=== PATIENT | female | born 1965 | race Caucasian/White ===

== ENCOUNTER 2018-09-05 21:26 | Emergency (ER) | payer SELFPAY ==
[~2018-09-05 21:26] MED LIST: ISOVUE-370 76%-LOCM 1 ML ONE
--- NOTE | 2018-09-05 22:13 | RAD ---
CHEST TWO VIEWS: HISTORY: Pneumonia. Cough. COMPARISON: None. FINDINGS: Normal cardiac silhouette. Pulmonary vessels and hilum are normal. Costophrenic angles are clear. No consolidation or mass. No pneumothorax or osseous abnormalities. IMPRESSION: No acute cardiopulmonary process. POS: [facility]
[2018-09-05 22:34] LABS: #Basophils 0.1 thou/uL (0.0-0.2); #Eosinphils 0.2 thou/uL (0.0-0.7); #Lymphocytes 2.9 thou/uL (1.20-3.40); #Monocytes 0.5 thou/uL (0.11-0.59); #Neutrophils 4.9 thou/uL (1.40-6.50); %Basophils 0.6 % (0.0-1.0); %Eosinophils 2.6 % (0.0-10.0); %Lymphocytes 33.6 % (21.0-51.0); %Monocytes 5.5 % (0.0-10.0); %Neutrophils 57.7 % (42.0-75.0); Hemoglobin 12.7 g/dL (12.0-16.0); Mean Corpuscular HGB CONC 33.8 g/dL (32.0-36.0); Mean Corpuscular Hemoglobin 29.4 pg (27.0-31.0); Mean Platelet Volume 7.7 fL (7.4-10.4); Platelet Count 231 thou/uL (130-400); RBC Distribution Width 11.5 % (11.5-14.5); Red Blood Cell (RBC) Count 4.32 mill/uL (4.20-5.40); White Blood Cell (WBC) Count 8.6 thou/uL (4.8-10.8)
[2018-09-05 22:53] LABS: ALT (SGPT) 14 U/L (8-55); AST (SGOT) 12 U/L (5-34); Albumin 3.8 g/dL (3.5-5.0); Alkaline Phosphatase 86 U/L (40-150); Anion Gap 13 mmol/L (10-20); BUN (Urea Nitrogen) 14 mg/dL (9.8-20.1); Bilirubin, Total 0.3 mg/dL (0.2-1.2); CKMB 1.5 ng/mL (0-6.6); Calc. Creatinine Clearance 0 mL/min (70-130); Calcium 8.9 mg/dL (7.8-10.44); Carbon Dioxide 27 mmol/L (22-29); Chloride 104 mmol/L (98-107); Estimated GFR-MDRD 77; Globulin 3.5 g/dL (2.4-3.5); Glucose 171 mg/dL (70-105); Potassium 3.7 mmol/L (3.5-5.1); Protein, Total 7.3 g/dL (6.0-8.3); Sodium 140 mmol/L (136-145); Troponin I Less than 0.010 ng/mL (< 0.028)
[2018-09-06] MEDS ORDERED: Benzonatate 100 MG CAP ONE ×2 (00:14→00:17)
--- NOTE | 2018-09-06 07:49 | CT ---
CT ANGIOGRAM OF THE CHEST: HISTORY: Cough and shortness of breath. COMPARISON: 10/12/2009. TECHNIQUE: CT angiogram of the chest is performed in the axial plane. Three-dimensional reformatted images are submitted for interpretation. FINDINGS: No mediastinal mass, lymphadenopathy, or hematoma. Heart size is within normal limits. No pericardi al effusion. The thoracic and upper abdominal aorta have a normal caliber. No periaortic fat strand ing. Visualized upper solid organs are unremarkable. Trachea and central bronchi are patent. Dependent atelectatic changes. No consolidation or mass. N o pleural effusion or pneumothorax. No lytic or blastic lesions in the osseous structures. Adequate contrast opacification of the pulmonary arterial system to the level of the segmental arteri es. No filling defects to suggest thromboembolism. IMPRESSION: No evidence of pulmonary artery embolism to the level of the segmental arteries. POS: [facility]
== END 2018-09-06 00:33 | disposition home or self-care (01) ==
LOC: ERS 21:26
DX: J40 Bronchitis, not specified as acute or chronic (principal); Z79.899 Other long term (current) drug therapy; Z79.82 Long term (current) use of aspirin
CPT/HCPCS: 71046; 71275; 80053; 82553; 83880; 84484; 85025; 93005

== ENCOUNTER 2019-03-04 13:56 | Observation (INO) | payer SELFPAY ==
[2019-03-04 14:38] LABS: #Basophils 0.1 thou/uL (0.0-0.2); #Eosinphils 0.1 thou/uL (0.0-0.7); #Lymphocytes 3.2 thou/uL (1.20-3.40); #Monocytes 0.6 thou/uL (0.11-0.59); #Neutrophils 5.6 thou/uL (1.40-6.50); %Basophils 0.9 % (0.0-1.0); %Eosinophils 0.7 % (0.0-10.0); %Monocytes 5.9 % (0.0-10.0); %Neutrophils 58.6 % (42.0-75.0); Hemoglobin 14.5 g/dL (12.0-16.0); Mean Corpuscular HGB CONC 34.2 g/dL (32.0-36.0); Mean Corpuscular Volume 87.6 fL (78.0-98.0); Mean Platelet Volume 7.7 fL (7.4-10.4); Platelet Count 210 thou/uL (130-400); RBC Distribution Width 12.1 % (11.5-14.5); Red Blood Cell (RBC) Count 4.85 mill/uL (4.20-5.40); White Blood Cell (WBC) Count 9.5 thou/uL (4.8-10.8)
[2019-03-04 14:43] LABS: INR-International Normal Ratio 0.9; PTT 24.2 SEC (22.9-36.1); Prothrombin Time 12.6 SEC (12.0-14.7)
--- NOTE | 2019-03-04 14:53 | RAD ---
CHEST ONE VIEW: HISTORY: Facial numbness. COMPARISON: 09/05/2018 FINDINGS: Heart size is within normal limits. Lungs are clear. No pneumonia, edema, pleural effusion, or othe r acute process. IMPRESSION: No acute intrathoracic disease. POS: OFF
[2019-03-04 15:00] LABS: ALT (SGPT) 17 U/L (8-55); AST (SGOT) 11 U/L (5-34); Albumin 4.2 g/dL (3.5-5.0); Alkaline Phosphatase 84 U/L (40-150); Anion Gap 14 mmol/L (10-20); BUN (Urea Nitrogen) 20 mg/dL (9.8-20.1); Bilirubin, Total 0.6 mg/dL (0.2-1.2); CK (CPK) 42 U/L (29-168); Calc. Creatinine Clearance 0 mL/min (70-130); Calcium 10.6 mg/dL (7.8-10.44); Carbon Dioxide 28 mmol/L (22-29); Chloride 101 mmol/L (98-107); Estimated GFR-MDRD 74; Globulin 3.1 g/dL (2.4-3.5); Glucose 165 mg/dL (70-105); Potassium 4.7 mmol/L (3.5-5.1); Protein, Total 7.3 g/dL (6.0-8.3); Sodium 138 mmol/L (136-145)
--- NOTE | 2019-03-04 15:44 | CT ---
CT HEAD WITHOUT IV CONTRAST COMPARISON: None HISTORY: Facial numbness and difficulty in keeping balance. TECHNIQUE: Axial CT imaging at 5 mm intervals from vertex through skull base without contrast FINDINGS: There is a low-density focus seen inferior aspect right basal ganglia likely due to dilated perivascu lar space or possibly remote lacunar infarction. There is a curvilinear area of diminished attenuation seen in the right occipital lobe. The exact etiology for this structures uncertain, but t his likely represents encephalomalacia. However, further evaluation with MRI is recommended. There is no evidence of an acute infarction, hemorrhage, mass effect, or midline shift. The ventricu lar system is normal in size, shape, and position. Visualized paranasal sinuses are clear. Osseous structures appear intact. IMPRESSION: 1. No acute intracranial abnormality demonstrated. 2. Curvilinear area of diminished attenuation right occipital lobe likely attributable to an area of encephalomalacia. However, given the appearance of this structure, an MRI of the brain is recommended on a nonemergent basis for further evaluation.
[2019-03-04 15:47] LABS: Clarity Clear (Clear)
[2019-03-04 15:48] LABS: Bilirubin Negative (Negative); Blood, Urine Negative (Negative); Glucose, Urine (Dipstick) Negative (Negative); Leukocyte Negative (Negative); Nitrite Negative (Negative); Protein, Urine (Dipstick) Negative (Neg-Trace); Specific Gravity, Urine 1.025 (1.005-1.030); Urobilinogen 0.2 mg/dL (0.2-1.0)
[2019-03-04] MEDS ORDERED: Acetaminophen 325 MG TAB PO PRN (20:55)
[2019-03-04] MEDS ORDERED: HYDROcodone/Acetaminophen 5/325 mg Tablet PO PRN (20:55)
[2019-03-04] MEDS ORDERED: Senokot S 8.6-50 MG TAB PO PRN (20:55)
[2019-03-04] MEDS ORDERED: hydrALAZINE 20 MG/ML VIAL SLOW IVP PRN (20:58)
[2019-03-04 21:33] VITALS: BMI 43.4
[2019-03-04] MEDS ORDERED: Aspirin 325 mg Enteric Coated Tablet PO SCH (22:00)
[2019-03-04] MEDS ORDERED: Famotidine 20 MG TAB PO SCH (22:00)
[2019-03-04] MEDS ORDERED: Atorvastatin Calcium 40 MG TAB PO SCH (22:00)
[2019-03-05 05:09] LABS: #Basophils 0.1 thou/uL (0.0-0.2); #Eosinphils 0.1 thou/uL (0.0-0.7); #Lymphocytes 3.8 thou/uL (1.20-3.40); #Monocytes 0.6 thou/uL (0.11-0.59); %Basophils 0.7 % (0.0-1.0); %Eosinophils 0.7 % (0.0-10.0); %Lymphocytes 39.8 % (21.0-51.0); %Neutrophils 52.8 % (42.0-75.0); Hemoglobin 13.7 g/dL (12.0-16.0); Mean Corpuscular HGB CONC 33.7 g/dL (32.0-36.0); Mean Corpuscular Hemoglobin 29.9 pg (27.0-31.0); Mean Corpuscular Volume 88.9 fL (78.0-98.0); Mean Platelet Volume 7.4 fL (7.4-10.4); Platelet Count 191 thou/uL (130-400); RBC Distribution Width 12.4 % (11.5-14.5); Red Blood Cell (RBC) Count 4.59 mill/uL (4.20-5.40); White Blood Cell (WBC) Count 9.5 thou/uL (4.8-10.8)
--- NOTE | 2019-03-05 05:19 | HP ---
PRIMARY CARE PHYSICIAN: Patricio. CHIEF COMPLAINT: Difficulty with ambulating and left-sided facial numbness. HISTORY OF PRESENT ILLNESS: Ms. Lennon is a 53-year-old female, who reported to the emergency room today after having 3 days of difficulty walking. Reports that she is running into things at home. Feels like her gait is not normal. Reports that she is supposed to take a baby aspirin every day, but stopped taking it a week ago. The patient reports that she has had her upper teeth pulled by the dentist about 3 weeks ago, but reports the numbness in her face started 3 days ago. She denies any recent illness. She does report that she spent several months in [place] within the last 6 months where she is from, reports that she goes back for health care. Reports that she had an EGD, colonoscopy was diagnosed with GERD, is on a PPI. Denies any changes to stool, urine. Denies any fever, chills, abdominal pain. While in the emergency room, the patient had a CT of the brain shows a curvilinear area of diminished attenuation right occipital lobe, likely attributable to an area of encephalomalacia. However, given the appearance of the structure, an MRI of the brain is recommended. No acute intracranial abnormality is demonstrated. The patient was subsequently admitted to the stroke unit for further management. REVIEW OF SYSTEMS: The patient reports gait changes, reports facial numbness. All other systems are reviewed and are negative unless mentioned in the HPI. PAST MEDICAL HISTORY: Diabetes, which is diet controlled; GERD; hypertension; and reports a history of a pulmonary embolism. PAST SURGICAL HISTORY: Total hysterectomy, tubal ligation, recent tooth extractions, had an EGD and a colonoscopy in the last year. PSYCHIATRIC HISTORY: None. SOCIAL HISTORY: Denies any alcohol use, drug use, has no smoking history. ALLERGIES: NONE. CURRENT MEDICATIONS: Per the ER record, which needs to be verified; 1. Aspirin 81 mg p.o. daily. 2. Lisinopril 10 mg p.o. once a day. 3. Dexilant one capsule daily. PHYSICAL EXAMINATION: VITAL SIGNS: Blood pressure 129/72, pulse is 73, respirations 19, temp is 98.1, and pO2 sats are 96% on room air. CONSTITUTIONAL: The patient is alert and oriented to person, place, and time. The patient is in no apparent distress. HEENT: Head is atraumatic and normocephalic. Eyes; eyelids are normal to inspection. Pupils are equally round and reactive to light. ENT, mucous membranes are moist. Mouth exam is normal. She is missing some teeth, upper jaw, primarily her front teeth. NECK: Normal range of motion. Trachea is midline. RESPIRATORY: Chest expansion is equal. Breath sounds are clear. CARDIOVASCULAR: Regular heart rate and rhythm. Heart sounds are normal. ABDOMEN: Nontender. Bowel sounds are heard. BACK: Normal range of motion. No CVA tenderness. EXTREMITIES: Upper extremity, normal range of motion. Inspection is normal. Strength normal. Radial pulses equal bilaterally. Lower extremity, normal inspection. Normal range of motion. Strength is normal. Pedal pulses equal bilaterally. No edema is noted. NEURO: Focal sensory deficits include to the left face V2 distribution, otherwise normal. The patient is oriented to person, place, and time. Speech is normal. No focal motor or other sensory deficits. ASSESSMENT AND PLAN: 1. Left facial numbness with gait disturbance. In light of CT findings, we will obtain an MRI of the brain without contrast, carotid Doppler, and echocardiogram. We will ask OT, PT, Speech to evaluate. We will check lipids, TSH. 2. Hypertension. We will restart home medication. 3. Gastroesophageal reflux disease. We will restart home medication. 4. Hospital course is dependent on clinical findings. Job ID: [id number]
[2019-03-05 05:35] LABS: ALT (SGPT) 15 U/L (8-55); AST (SGOT) 9 U/L (5-34); Albumin 3.8 g/dL (3.5-5.0); Alkaline Phosphatase 74 U/L (40-150); Anion Gap 13 mmol/L (10-20); BUN (Urea Nitrogen) 22 mg/dL (9.8-20.1); Bilirubin, Total 0.7 mg/dL (0.2-1.2); Calc. Creatinine Clearance 174 mL/min (70-130); Calcium 10.1 mg/dL (7.8-10.44); Carbon Dioxide 29 mmol/L (22-29); Cardiac Risk 3.8 (Less than 4.5); Chloride 99 mmol/L (98-107); Cholesterol 208 mg/dl (< 200 Desired); Estimated GFR-MDRD 81; Globulin 3.1 g/dL (2.4-3.5); Glucose 145 mg/dL (70-105); HDL Cholesterol 55 mg/dL (>60 Neg Risk); LDL Cholesterol, Calculated 129 mg/dL; Potassium 4.5 mmol/L (3.5-5.1); Protein, Total 6.9 g/dL (6.0-8.3); Sodium 136 mmol/L (136-145); Triglycerides 118 mg/dL (Less than 150)
--- NOTE | 2019-03-05 08:29 | ULT ---
BILATERAL CAROTID DUPLEX ULTRASOUND: HISTORY: Facial numbness TECHNIQUE: Grayscale, color-flow and spectral Doppler ultrasound imaging of the extracranial carotid artery syst ems was performed bilaterally. FINDINGS: No significant plaque formation or intimal wall thickening is seen. The peak systolic velocity in the right ICA measures 106 cm/s with an end-diastolic velocity of 47 cm /s and a systolic ratio of 1.26. The peak systolic velocity in the left ICA measures 104 cm/s with an end-diastolic velocity of 35 cm/s and a systolic ratio of 0.93. Flow in both vertebral arteries remains antegrade. IMPRESSION: No evidence of hemodynamically significant stenosis
[2019-03-05] MEDS ORDERED: Enoxaparin Sodium 40 MG/0.4 ML SYRINGE SC SCH (09:00)
[2019-03-05] MEDS ORDERED: Famotidine 20 MG TAB PO SCH (09:00)
[2019-03-05] MEDS ORDERED: Aspirin 325 mg Enteric Coated Tablet PO SCH (09:00)
--- NOTE | 2019-03-05 12:11 | MRI ---
MRI BRAIN NONCONTRAST: DATE: 03/05/19 HISTORY: 53-year-old female with disequilibrium and facial numbness, and abnormal CT. COMPARISON: No prior MRIs of brain. FINDINGS: In the right occipital lobe, there is a very small, crescentic, approximately 0.8 x 0.3 cm focus of C SF-signal within the brain parenchyma, that corresponds to the hypodensity found on the CT. This is l ined by a thin hemosiderin stain surrounding it. Furthermore, there is an adjacent hemosiderin stain in the brain parenchyma just lateral to it. There is no other intra-axial signal abnormality. No other areas of hemorrhage. No mass effect, midli ne shift, obstructive hydrocephalus, or extra-axial fluid collection. IMPRESSION: 1. A very small focus of encephalomalacia with hemosiderin stain in the right occipital lobe, co rresponding to the CT abnormality. This is consistent with a tiny old insult, probably a tiny old inf arction in the right posterior cerebral artery territory, which had a prior hemorrhagic transformatio n. 2. The rest of the brain is normal. BERE Wilson POS: [facility]
[2019-03-05 16:07] VITALS: BP 129/73; TEMP 97.6
[2019-03-05] MEDS ORDERED: Atorvastatin Calcium 40 MG TAB PO SCH (21:00)
--- NOTE | 2019-03-06 04:26 | DIS ---
DATE OF ADMISSION: 03/04/2019 DATE OF DISCHARGE: 03/05/2019 CHIEF COMPLAINT: Difficulty with ambulating and left-sided facial numbness. DISCHARGE DIAGNOSES: 1. Facial numbness and gait disturbance, possible transient ischemic attack, no new cerebrovascular accident/acute event per workup. 2. Old cerebrovascular accident per MRI. 3. Hyperlipidemia, untreated. 4. Type 2 diabetes mellitus. 5. Hypertension. 6. Obesity. BRIEF HOSPITAL COURSE: Ms. Lennon is a 53-year-old female with past medical history as outlined above, who reported to the emergency room after having a 3-day history of some difficulty walking. The patient stated that she felt her gait was not normal, and she continued to bump into things at home. She reports that she was taking a baby aspirin daily; however, about a week ago, she stopped this on her own, secondary to a dental procedure that she was having. The patient was admitted to our facility for further workup and care, and CVA ruled out. Initial CT of the brain shows a curvilinear area of diminished attenuation in the right occipital lobe, likely attributable to an area of encephalomalacia. Followup MRI of the brain revealed a very small focus of encephalomalacia with hemosiderin stain in the right occipital lobe, corresponding to the CT abnormality. It felt this was consistent with a tiny old insult, probably a tiny old infarction in the right posterior cerebral artery territory, which had a prior hemorrhagic transformation. The patient also underwent carotid Doppler, which was negative for significant disease, and echocardiogram which showed normal left ventricular systolic function with EF estimated at 55% to 60% and diastolic dysfunction. The patient was restarted on her baby aspirin. Lab work revealed hyperlipidemia with a total cholesterol level of 208 and LDL of 129, and statin was started on this patient. The patient states she does have a history of type 2 diabetes mellitus, but was checking her blood sugars at home, and came off her diabetic medication on her own. At the time of my interview, the patient is feeling well. Her symptoms have resolved. The patient denies any chest pain or shortness of breath. She has been ambulating in the halls without difficulty today. CONDITION AT DISCHARGE: Stable. DISCHARGE DISPOSITION: Home. DISCHARGE MEDICATIONS: 1. Aspirin 81 mg daily. 2. Dexilant 60 mg daily. 3. Lisinopril 10 mg tablet, one tablet p.o. daily. New medication will be atorvastatin 40 mg tablet, one tablet p.o. at bedtime. DISCHARGE INSTRUCTIONS AND FOLLOWUP: The patient has been counseled at length on the importance of aggressive risk factor modification including aggressive blood glucose control. She will follow up with her primary care physician and get reinstated on her diabetic medications. She will continue her statin and continue her aspirin daily. The patient has been counseled at length on her risk factors for recurrent stroke. The patient will be discharged in good condition. Care of this patient has been discussed at length with Dr. Gonzalez who agrees with plan as outlined above. Job ID: [id number]
== END 2019-03-05 19:35 | disposition home or self-care (01) ==
LOC: ERS 13:56 → 2SE 18:56
PROVIDERS: ADMIT Internal Medicine; ATTEND Internal Medicine
DX: R26.9 Unspecified abnormalities of gait and mobility (principal); R20.0 Anesthesia of skin; K21.9 Gastro-esophageal reflux disease without esophagitis; E11.9 Type 2 diabetes mellitus without complications; I10 Essential (primary) hypertension; E78.5 Hyperlipidemia, unspecified; E66.9 Obesity, unspecified; Z68.41 Body mass index [BMI] 40.0-44.9, adult; Z86.711 Personal history of pulmonary embolism; Z86.73 Personal history of transient ischemic attack (TIA), and cerebral infarction without residual deficits; Z79.82 Long term (current) use of aspirin; Z79.899 Other long term (current) drug therapy
CPT/HCPCS: 36415; 36416; 70450; 70551; 71045; 80053; 80061; 81003; 82550; 83880; 84443; 84484; 85025; 85610; 85730; 90471; 90732; 93005; 93306; 93880; 96372; G0009; G0378; J1650